=== PATIENT | male | born 1980 | race Caucasian/White ===

== ENCOUNTER 2017-04-27 12:25 | Emergency (ER) | payer OTHER ==
[~2017-04-27] VITALS: Ht 190.5 cm; Wt 138.0 kg
[2017-04-27 12:32] VITALS: TEMP 37.2; Ht 190.5 cm; Wt 138.0 kg
[2017-04-27] MEDS ORDERED: IBUPROFEN 800 MG TAB PO STA (12:48)
--- NOTE | 2017-04-27 13:14 | EMERGENCY ROOM VISIT NOTE ---
ED Visit Note First contact with patient: 12:39 CHIEF COMPLAINT: Shoulder pain HISTORY OF PRESENT ILLNESS: This 36-year-old male patient presents to the emergency department complaining of pain in the left shoulder for several months. The patient states about 4 or 5 months ago he believes that he dislocated his shoulder and his friend "put it back in, but I think he did more damage than good, because I've been having problems with it ever since." There is limitation of motion of the arm because of the pain. The pain is moderate, constant and increases with motion of the hand and arm. The patient states the pain is aching and 6/10. The patient has taken no medications for relief of the pain. No previous significant previous shoulder disease or injury. No numbness or tingling. No neck and no back pain. No chest pain or shortness of breath. No abdominal pain or nausea/vomiting. No cough. REVIEW OF SYSTEMS: A 6 system review of systems was performed with positives and pertinent negatives in the HPI. ALLERGIES: No known allergies MEDICATIONS: No medications PMH: No significant past medical history SOCIAL HISTORY: Chews tobacco daily, occasional alcohol use, denies recreational drug use. PHYSICAL EXAM: Vital Signs: Reviewed nurse's notes, vital signs stable. GENERAL : Pleasant and cooperative, in no acute distress, well-developed, well- nourished. MUSCULOSKELETAL: There is no deformity in the contour of the left shoulder and there are no yousif deformities noted. There is no sulcus sign. There is tenderness over the anterior and lateral shoulder joint. The patient's range of motion is within normal limits. Supraspinatus strength 5/5. There is no clavicle tenderness. No tenderness of the humerus, elbow, wrist, or hand. Perinatology Physician strength 5/5. Radial pulse 2+. NECK: No tenderness to palpation over the cervical spine. Full range of motion of the neck without pain. HEART: Regular rate and rhythm without murmurs gallops or rubs. LUNGS: Clear to auscultation bilaterally without wheezes, rales or rhonchi. No accessory muscle use. No retractions. NEURO: The patient is alert and oriented to person, place, and time. Normal sensation to light and sharp touch. Capillary refill less than 2 seconds. IMAGING: LEFT SHOULDER MIN 2 VIEWS ROUTINE CLINICAL HISTORY: Left shoulder pain. COMPARISON: None FINDINGS: Alignment of left shoulder is anatomic. There is no fracture or suspicious lesion. There is minimal osteoarthritis of the acromioclavicular joint. IMPRESSION: 1. No acute fracture or dislocation of the left shoulder. 2. 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 EMERGENCY DEPARTMENT COURSE: I examined the patient. An X-ray of the left shoulder was reviewed by myself and radiology and shows no acute fracture or dislocation, mild arthritic changes. Patient was given Motrin 800 mg for his pain, which he reports improved. Patient was provided with referral information to follow up with orthopedics. He was discharged home in stable condition and ambulatory. Problem List Medical Problems: (1) Attention deficit hyperactivity disorder Status: Chronic Current/Historical Medications No Active Prescriptions or Reported Meds Allergies Coded Allergies: No Known Allergies (Unverified , 04/27/17) Vital Signs Date Time Temp Pulse Resp B/P (MAP) Pulse Ox O2 Delivery O2 Flow Rate FiO2 04/27/17 14:54 67 15 132/74 99 04/27/17 14:20 67 15 132/74 99 Room Air 04/27/17 12:32 37.2 74 16 147/87 97 Room Air Medications Administered Medications (Trade) Dose Ordered Sig/Charlene Route Start Time Stop Time Status Last Admin Dose Admin Ibuprofen (Motrin Tab) 800 mg NOW STAT PO 04/27/17 12:48 04/27/17 12:50 DC 04/27/17 12:54 800 MG Departure Information Impression Primary Impression: Chronic left shoulder pain Dispostion Home / Self-Care Condition GOOD Prescriptions No Active Prescriptions or Reported Meds Referrals Mk Cameron M.D. (PCP) Bud Vidales MD Patient Instructions ED Shoulder Pain [facility] [place], [facility] Additional Instructions Alternate heat and ice to the shoulder intermittently and frequently over the next few days. Ibuprofen 800 mg and Tylenol 1000 mg every 8 hours if needed for pain. Follow up with the orthopedic doctor in the next week--call for an appointment.
--- NOTE | 2017-04-27 13:43 | DIAGNOSTIC IMAGING REPORT ---
LEFT SHOULDER MIN 2 VIEWS ROUTINE CLINICAL HISTORY: Left shoulder pain. COMPARISON: None FINDINGS: Alignment of left shoulder is anatomic. There is no fracture or suspicious lesion. There is minimal osteoarthritis of the acromioclavicular joint. IMPRESSION: 1. No acute fracture or dislocation of the left shoulder. 2. 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 Electronically signed by: Lazaro Murray M.D. 04/27/2017 1:41 PM Dictated Date/Time: 04/27/2017 1:40 PM
[2017-04-27 14:54] VITALS: BP 132/74; PULSE 67; O2SAT 99
== END 2017-04-27 14:54 | disposition home or self-care (01) ==
LOC: C.EDB 12:27 → C.EDD 14:54
DX: M25.512 Pain in left shoulder (principal); G89.29 Other chronic pain; F90.9 Attention-deficit hyperactivity disorder, unspecified type; F17.220 Nicotine dependence, chewing tobacco, uncomplicated